=== PATIENT | female | born 1995 | race Caucasian/White ===

== ENCOUNTER 2022-12-01 20:57 | Observation (INO) | payer OTHER, SELFPAY ==
[2022-12-01 20:59] VITALS: BP 135/102; PULSE 67; RESP 17
[2022-12-01 21:00] VITALS: BP 135/102; PULSE 99; RESP 18; TEMP 37.3; O2SAT 100; BMI 25.1
--- NOTE | 2022-12-01 21:12 | CT_ITS ---
The [address] [address] Patient Name: LILIANE AMANDA MRN: [facility]:[id number] date: 1995 Sex: F Assigned Patient Location: ER Current Patient Location: ICU Accession/Order Number: [id number] Exam Date: 12/01/2022 21:24 Report Date: 12/01/2022 22:29 At the request of: BOO PALOMARES Procedure: CT head/brain wo con EXAM: CT head/brain wo con, CT cervical spine wo con, CT facial bones wo con HISTORY: seizure COMPARISON: None. TECHNIQUE: Axial CT scans through the head, facial bones and cervical spine were obtained without IV contrast administration. Dose reduction techniques were achieved by using: automated exposure control and/or adjustment of mA and /or kV according to patient size and/or use of iterative reconstruction technique. CT BRAIN FINDINGS: There is no evidence of acute intracranial hemorrhage or abnormal extra-axial fluid collection. No mass effect or midline shift is seen. There is no evidence of large acute territorial infarction. There is no hydrocephalus. No definite acute fracture is identified. Soft tissues are unremarkable. IMPRESSION: No CT evidence of acute intracranial abnormality. CT FACIAL BONES FINDINGS: No acute fracture or posttraumatic malalignment. The globes are intact bilaterally. There is no retrobulbar hematoma. The soft tissues are unremarkable. The visualized paranasal sinuses show no air-fluid level. Mastoid air cells are clear. IMPRESSION: No acute abnormality of facial bones. CT CERVICAL SPINE FINDINGS: No acute fracture or posttraumatic malalignment is seen. There is straightening of the normal cervical lordotic curvature. The prevertebral soft tissue space appears normal. Visualized neck shows no adenopathy. IMPRESSION: No acute fracture or posttraumatic malalignment of cervical spine. Straightening of cervical lordosis, may be related to positioning or muscle spasm. EXAM: XR ankle RT 2V TECHNIQUE: Right ankle x-ray: 2 view(s). FINDINGS: No acute displaced fracture or dislocation. Alignment is anatomic. No soft tissue abnormality is seen. IMPRESSION: No acute displaced fracture or dislocation. Electronically authenticated by: SRIDHAR UNLU Date: 12/01/2022 22:29
--- NOTE | 2022-12-01 21:12 | CT_ITS ---
The [address] [address] Patient Name: LILIANE AMANDA MRN: [facility]:[id number] date: 1995 Sex: F Assigned Patient Location: ER Current Patient Location: ICU Accession/Order Number: [id number] Exam Date: 12/01/2022 21:24 Report Date: 12/01/2022 22:29 At the request of: BOO PALOMARES Procedure: CT facial bones wo con EXAM: CT head/brain wo con, CT cervical spine wo con, CT facial bones wo con HISTORY: seizure COMPARISON: None. TECHNIQUE: Axial CT scans through the head, facial bones and cervical spine were obtained without IV contrast administration. Dose reduction techniques were achieved by using: automated exposure control and/or adjustment of mA and /or kV according to patient size and/or use of iterative reconstruction technique. CT BRAIN FINDINGS: There is no evidence of acute intracranial hemorrhage or abnormal extra-axial fluid collection. No mass effect or midline shift is seen. There is no evidence of large acute territorial infarction. There is no hydrocephalus. No definite acute fracture is identified. Soft tissues are unremarkable. IMPRESSION: No CT evidence of acute intracranial abnormality. CT FACIAL BONES FINDINGS: No acute fracture or posttraumatic malalignment. The globes are intact bilaterally. There is no retrobulbar hematoma. The soft tissues are unremarkable. The visualized paranasal sinuses show no air-fluid level. Mastoid air cells are clear. IMPRESSION: No acute abnormality of facial bones. CT CERVICAL SPINE FINDINGS: No acute fracture or posttraumatic malalignment is seen. There is straightening of the normal cervical lordotic curvature. The prevertebral soft tissue space appears normal. Visualized neck shows no adenopathy. IMPRESSION: No acute fracture or posttraumatic malalignment of cervical spine. Straightening of cervical lordosis, may be related to positioning or muscle spasm. EXAM: XR ankle RT 2V TECHNIQUE: Right ankle x-ray: 2 view(s). FINDINGS: No acute displaced fracture or dislocation. Alignment is anatomic. No soft tissue abnormality is seen. IMPRESSION: No acute displaced fracture or dislocation. Electronically authenticated by: SRIDHAR UNLU Date: 12/01/2022 22:29
--- NOTE | 2022-12-01 21:12 | CT_ITS ---
The [address] [address] Patient Name: LILIANE AMANDA MRN: [facility]:[id number] date: 1995 Sex: F Assigned Patient Location: ER Current Patient Location: ICU Accession/Order Number: [id number] Exam Date: 12/01/2022 21:24 Report Date: 12/01/2022 22:29 At the request of: BOO PALOMARES Procedure: CT cervical spine wo con EXAM: CT head/brain wo con, CT cervical spine wo con, CT facial bones wo con HISTORY: seizure COMPARISON: None. TECHNIQUE: Axial CT scans through the head, facial bones and cervical spine were obtained without IV contrast administration. Dose reduction techniques were achieved by using: automated exposure control and/or adjustment of mA and /or kV according to patient size and/or use of iterative reconstruction technique. CT BRAIN FINDINGS: There is no evidence of acute intracranial hemorrhage or abnormal extra-axial fluid collection. No mass effect or midline shift is seen. There is no evidence of large acute territorial infarction. There is no hydrocephalus. No definite acute fracture is identified. Soft tissues are unremarkable. IMPRESSION: No CT evidence of acute intracranial abnormality. CT FACIAL BONES FINDINGS: No acute fracture or posttraumatic malalignment. The globes are intact bilaterally. There is no retrobulbar hematoma. The soft tissues are unremarkable. The visualized paranasal sinuses show no air-fluid level. Mastoid air cells are clear. IMPRESSION: No acute abnormality of facial bones. CT CERVICAL SPINE FINDINGS: No acute fracture or posttraumatic malalignment is seen. There is straightening of the normal cervical lordotic curvature. The prevertebral soft tissue space appears normal. Visualized neck shows no adenopathy. IMPRESSION: No acute fracture or posttraumatic malalignment of cervical spine. Straightening of cervical lordosis, may be related to positioning or muscle spasm. EXAM: XR ankle RT 2V TECHNIQUE: Right ankle x-ray: 2 view(s). FINDINGS: No acute displaced fracture or dislocation. Alignment is anatomic. No soft tissue abnormality is seen. IMPRESSION: No acute displaced fracture or dislocation. Electronically authenticated by: SRIDHAR UNLU Date: 12/01/2022 22:29
--- NOTE | 2022-12-01 21:15 | ECG_ITS ---
The [facility] Test Date: 2022-12-01 Pat Name: LILIANE AMANDA Department: Room: - Gender: Female Order Taker: : 1995 Requested By: [id number] Order Number: [id number] Reading MD: CAT HADDAD Measurements Intervals [place] Rate: 88 P: 61 NC: 166 QRS: 85 QRSD: 102 T: 59 QT: 388 QTc: 434 Interpretive Statements 1100 Sinus rhythm 9110 normal ECG No previous ECG available for comparison Electronically Signed On 12-02-2022 6:54:12 EDT by CAT HADDAD
--- NOTE | 2022-12-01 21:17 | ED.SEIZURE1 ---
HPI - Seizure General Chief Complaint: Dental/Oral Stated Complaint: fall Time Seen by Provider: 12/01/22 21:06 Source: patient Source comment: ems Mode of arrival: ambulance Limitations: altered mental status (patient is post ictal on arrival) History of Present Illness HPI Narrative: This 27-year-old female was transferred from [facility] where she has been a resident since November 23. She is receiving rehab for opiate dependence. The patient states that she started on Wellbutrin earlier today. This evening she was playing a game with some other residents when she states her head started shaking and then she cannot recall what happened. According to EMS she had a witnessed seizure and fell and struck the right side of her face. She has an approximately 4 cm laceration at the right lateral aspect of her periorbital region and a hematoma over her right eye and right cheek. She fell and broke the 2 front incisors. She is noted to have hives on her chest upon arrival and states she is having a burning sensation in her right ankle area where she has an eruption of what appears to be hives. He denies any difficulty breathing or swallowing. She did bite her tongue. She does not have a history of seizures. She denies that she was addicted to benzodiazepines stating that Percocet was what she was addicted to. MD complaint: Reports seizure Onset (ago): hour(s) (1) Description of Episode: Reports loss of consciousness and post-event confusion Witnessed: Yes - by Bystander Trauma: No Seizure History: No Place: [facility] Possible Precipitating Event: Reports head injury and stress Treatments prior to arrival: Reports none Related Data Home Medications Medication Instructions Recorded Confirmed buprenorphine 12 mg-naloxone 3 mg 1 film sublingual DAILY 12/01/22 12/01/22 sublingual film bupropion HCl 100 mg tablet 100 mg PO DAILY 12/01/22 12/01/22 clonidine HCl 0.1 mg tablet 0.1 mg PO DAILY 12/01/22 12/01/22 gabapentin 600 mg tablet 600 mg PO DAILY 12/01/22 12/01/22 hydroxyzine pamoate 25 mg capsule 25 mg PO BID 12/01/22 12/01/22 (Vistaril) hydroxyzine pamoate 25 mg capsule 25 mg PO BID 12/01/22 12/01/22 (Vistaril) methocarbamol 750 mg tablet 750 mg PO Q8H 12/01/22 12/01/22 Allergies Allergy/AdvReac Type Severity Reaction Status Date / Time amoxicillin AdvReac Mild Hives Verified 12/01/22 21:07 Review of Systems ROS Status of ROS 10 or more systems reviewed and unremarkable except as noted in history and below Exam Narrative Exam Narrative: Patient is mildly postictal but appropriate Constitutional Vital Signs - 24 hr 12/01/22 21:00 12/01/22 21:26 12/01/22 22:36 Temperature 99.2 F Pulse Rate [Monitor] 99 H Respiratory Rate 18 22 Blood Pressure [Right Arm] 135/102 H Pulse Oximetry 100 99 96 Oxygen Delivery Method Room Air Room Air Room Air Documenting provider has reviewed patient's vital signs: yes (Patient is afebrile with a normal pulse, blood pressure is moaning elevated at 135/102, she is not hypoxic a pulse ox of 100 percent on room air) Common normals: no apparent distress Exam limitations: altered mental status (Patient is mildly postictal) General appearance: well kempt and well developed HENMT Common normals: normocephalic (There is a hematoma at the lateral aspect of the right forehead, ) and oropharynx normal (2 frontal incisors are broken, there are 2 tongue lacerations ) Head and scalp: normal to inspection, normocephalic, atraumatic (4 cm hematoma to the right forehead, 2 x 2 area of swelling, tenderness ), contusion (right cheek), hematoma right temporal and laceration (4 cm, superficial, lateral to right eye) Face and sinus images: 1. 2. 3. Nose: external nose normal, nares normal and no nasal discharge General ear: hearing grossly impaired External ear: external ears normal External auditory canal: EACs normal Mouth: tongue normal (2 tongue lacerations, anterior and right lateral) and mouth trauma (2 frontal incisors are broken) Throat: posterior oropharynx normal Eye Common normals: PERRL, EOMs intact bilaterally and conjunctivae normal General eye: normal appearance of both eyes Neck & C-Spine Cervical spine: collar present Lymph Lymphatic: no lymphadenopathy noted Chest Chest: abnormal inspection of the chest (faint red rash on anterior chest wall) Respiratory Common normals: normal respiratory effort, no retractions, no use of accessory muscles and clear to auscultation bilaterally Effort & inspection: able to speak in complete sentences and symmetric chest movement Cardio Common normals: no JVD, regular rate, regular rhythm, S1 normal heart sound, S2 normal heart sound, no murmurs, no rub and peripheral pulses 2+ throughout GI Common normals: Normal to inspection, nondistended, normoactive bowel sounds present, soft to palpation, non-tender, no hepatosplenomegaly and no masses Back & Pelvis Common normals: no CVA tenderness and thoracic and lumbar spine normal to inspection Extremity Right lower extremity: lower leg (faint, irregular rash and tenderness to right medial lower leg, non-petechi) Neuro [place] Coma Scale: document GCS findings [place] coma scale eye opening: Spontaneous [place] coma scale verbal response: Orientated [place] coma scale motor response: Obey commands [place] coma scale total score: 15 Common normals: oriented x3, CN's II-XII intact bilaterally, moves all extremities, no focal motor deficits and no sensory deficits noted Sensorium/orientation: awake, alert, oriented to person and oriented to place Psych Common normals: mental status grossly normal Course Course Hospital Course: Patient remained awake, alert, oriented with no recurrent seizure activity. She was tremulous and stated that she had the chills and was medicated with Tylenol and Ativan. CT scans of the brain, cervical spine and facial bones were reviewed by radiology and reviewed by myself and are negative for acute findings. For whatever reason the CT and x-ray findings are not crossing over into the body of this chart. The patient was given copies of the reports. I will discuss hospitalization for observation and neuro checks overnight. The patient's hives on her face and right ankle have resolved as well. She has never been on any SSRI or other medications or antidepressants in the past. She does take Seroquel for sleep. Vital Signs Vital signs: Vital Signs Temperature 99.2 F 12/01/22 21:00 Pulse Rate 99 H 12/01/22 21:00 Respiratory Rate 18 12/01/22 21:00 Blood Pressure 135/102 H 12/01/22 21:00 Pulse Oximetry 100 12/01/22 21:00 Oxygen Delivery Method Room Air 12/01/22 21:00 Temperature 99.2 F 12/01/22 21:00 Pulse Rate 99 H 12/01/22 21:00 Respiratory Rate 22 12/01/22 22:36 Blood Pressure 135/102 H 12/01/22 21:00 Pulse Oximetry 96 12/01/22 22:36 Oxygen Delivery Method Room Air 12/01/22 22:36 MDM - Seizure MDM Narrative Medical decision making narrative: This 27-year-old female who is currently in an outpatient rehab facility for opiate dependence presents for evaluation after she had a witnessed seizure. The patient was started on Wellbutrin earlier today. She does not have a history of a seizure disorder. The patient fell sustaining a laceration to the right side of her face which I closed with 4 sutures, she also has a hematoma over her right zygoma area and right frontal aspect of her forehead. She denied any neck pain and had no focal neurologic deficits however she was postictal upon arrival. An EKG done upon arrival was in his rhythm at 88 bpm with no acute changes. An IV had been placed by EMS and she was given a milligram of Ativan. She was noted to have hives on her chest and right lower leg for which I gave her 25 mg of IV Benadryl. She has had some tremulous episodes and I was concerned she may have another seizure so she was medicated with an additional milligram of Ativan. Routine labs are reviewed. She has a normal white count. Normal hemoglobin. Electrolytes are normal. Her tox was negative for alcohol but positive for Suboxone and benzodiazepines. She has been in the rehab since November 23. She had an elevated lactic acid likely related to her seizure activity. She was given IV fluids and Tylenol clinical improvement. CT scan of the head/brain, cervical spine and facial bones are reviewed and are normal. The results did not propagate into the body of this report but the director of radiology gave me copies of the readings. The c-collar was removed. She does have 2L Ellis1 fractures of the upper incisors and 2 tongue lacerations but no active oral bleeding or signs of infection. Case was discussed with the hospitalist and she is accepted for admission, observation status Differential Diagnosis Differential diagnosis: Likely generalized seizure Lab Data Labs: Lab Results 12/01/22 12/01/22 Range/Units 21:18 22:49 WBC 7.5 (4.0-11.0) 10^3/uL RBC 4.24 (4.20-5.40) 10^6/uL Hgb 12.9 (12.0-16.0) g/dL Hct 36.9 (36.0-48.0) % MCV 87.0 (81.0-99.0) fL MCH 30.4 (26.7-34.0) pg MCHC 35.0 (29.9-35.2) g/dL RDW 11.2 (11.0-15.0) % Plt Count 221 (150-450) 10^3/uL MPV 11.2 (9.5-13.5) fL Neut % (Auto) 69.7 (43.0-75.0) % Lymph % (Auto) 23.7 (20.5-60.0) % [place] % (Auto) 5.5 (1.7-12.0) % Eos % (Auto) 0.3 L (0.9-7.0) % Baso % (Auto) 0.5 (0.2-2.0) % Neut # (Auto) 5.3 (1.4-6.5) 10^3/uL Lymph # (Auto) 1.8 (1.2-3.8) 10^3/uL [place] # (Auto) 0.4 (0.3-0.8) 10^3/uL Eos # (Auto) 0.0 (0.0-0.7) 10^3/uL Baso # (Auto) 0.0 (0.0-0.1) 10^3/uL Abs Immat Gran (auto) 0.02 (0.00-0.03) 10^3/uL Imm/Tot Granulo (auto) 0.3 (0.0-0.5) % ESR 6 (<=20) mm/hr Sodium 139 (136-145) mmol/L Potassium 4.5 (3.5-5.1) mmol/L Chloride 103 (98-107) mmol/L Carbon Dioxide 25.2 (21.0-32.0) mmol/L Anion Gap 15.3 BUN 13.0 (7.0-18.0) mg/dL Creatinine 1.00 (0.55-1.02) mg/dL Est GFR ( Amer) >60 (>=60) Est GFR (Non-Af Amer) >60 (>=60) BUN/Creatinine Ratio 13.0 Glucose 89 (74-106) mg/dL Lactate 3.6 H* (0.4-2.0) mmol/L Calcium 9.2 (8.5-10.1) mg/dL Urine Opiates Screen Negative (NEGATIVE) Ur Buprenorphine Scrn Positive A (NEGATIVE) Ur Oxycodone Screen Negative (NEGATIVE) Urine Methadone Screen Negative (NEGATIVE) Ur Propoxyphene Screen Negative (NEGATIVE) Ur Barbiturates Screen Negative (NEGATIVE) U Tricyclic Antidepress Negative (NEGATIVE) Ur Phencyclidine Scrn Negative (NEGATIVE) Ur Amphetamines Screen Negative (NEGATIVE) U Methamphetamines Scrn Negative (NEGATIVE) U Benzodiazepines Scrn Positive A (NEGATIVE) Urine Cocaine Screen Negative (NEGATIVE) U Cannabinoids Screen Negative (NEGATIVE) Ethanol Quant <3 mg/dL ECG Data Attestation: I personally reviewed and interpreted this ECG as follows: (Sinus rhythm at 88 beats for minute, normal axis, normal intervals, no acute ST segment elevation or T-wave inversion) Critical Care Time Critical Care Time Critical Care Time: Yes Total Critical Care Time: 40 (minutes) Attestation: i have seen and treated this patient Discharge Plan Discharge Chief Complaint: Dental/Oral Clinical Impression: Laceration, New onset seizure, Allergic reaction, Fracture of tooth Patient Disposition: Admitted as Observation Time of Disposition Decision: 00:00 Condition: Good Procedures ED Laceration Laceration Laceration 1: Site: face (Right lateral temporal aspect of scalp) Size (cm): 4 Description: linear and clean Depth: simple, single layer Anesthetic used: lidocaine 1% Anesthesia technique: local infiltration Amount (ml): 5 Skin layer closed with: other (Ethilon) Size (cm): 4-0 Number of sutures: 4 Technique: simple, interrupted
[2022-12-01] MEDS: LORAZEPAM 2 MG/ML 1 ML VIAL 1 MG IV (21:25)
[2022-12-01 21:26] VITALS: PULSE 94; O2SAT 99
[2022-12-01 21:30] LABS: Basophils Percent Auto 0.5 % (0.2-2.0); Eosinophils Percent Auto 0.3 % (0.9-7.0); Hematocrit 36.9 % (36.0-48.0); Hemoglobin 12.9 g/dL (12.0-16.0); Immature Granulocytes Abs Auto 0.02 10^3/uL (0.00-0.03); Immature Granulocytes Pct Auto 0.3 % (0.0-0.5); Lymphocytes Absolute Auto 1.8 10^3/uL (1.2-3.8); Lymphocytes Percent Auto 23.7 % (20.5-60.0); Mean Corpuscular Hemoglobin 30.4 pg (26.7-34.0); Mean Platelet Volume 11.2 fL (9.5-13.5); Monocytes Absolute Auto 0.4 10^3/uL (0.3-0.8); Monocytes Percent Auto 5.5 % (1.7-12.0); Neutrophils Absolute Auto 5.3 10^3/uL (1.4-6.5); Neutrophils Percent Auto 69.7 % (43.0-75.0); Platelet Count 221 10^3/uL (150-450); Red Blood Count 4.24 10^6/uL (4.20-5.40); Red Cell Distribution Width 11.2 % (11.0-15.0); White Blood Count 7.5 10^3/uL (4.0-11.0)
--- NOTE | 2022-12-01 21:30 | PC.NURSE ---
Pt presented to ER via EMS from [facility] Per EMS pt had a witnessed seizure from standing Pt presents with a laceration from the right congregational into the hair line, a large hematome to the right side of the forehead and right zygomatic bone area. Bilateral front teeth have been broken secondary to the fall Pt presents from EMS with a bandage to the wound, an IV established, and a C-collar in place Noted on arrival is a rash/hives to the patients chest The pt is complaining of pain to her right ankle, assesment reveals a large reddened area that blotches out, appearing to be a hive Pt is very sensitive to the touch of this area
--- NOTE | 2022-12-01 21:34 | XR_ITS ---
The [address] [address] Patient Name: LILIANE AMANDA MRN: [facility]:[id number] date: 1995 Sex: F Assigned Patient Location: ER Current Patient Location: ICU Accession/Order Number: [id number] Exam Date: 12/01/2022 21:24 Report Date: 12/01/2022 22:29 At the request of: BOO PALOMARES Procedure: XR ankle RT 2V EXAM: CT head/brain wo con, CT cervical spine wo con, CT facial bones wo con HISTORY: seizure COMPARISON: None. TECHNIQUE: Axial CT scans through the head, facial bones and cervical spine were obtained without IV contrast administration. Dose reduction techniques were achieved by using: automated exposure control and/or adjustment of mA and /or kV according to patient size and/or use of iterative reconstruction technique. CT BRAIN FINDINGS: There is no evidence of acute intracranial hemorrhage or abnormal extra-axial fluid collection. No mass effect or midline shift is seen. There is no evidence of large acute territorial infarction. There is no hydrocephalus. No definite acute fracture is identified. Soft tissues are unremarkable. IMPRESSION: No CT evidence of acute intracranial abnormality. CT FACIAL BONES FINDINGS: No acute fracture or posttraumatic malalignment. The globes are intact bilaterally. There is no retrobulbar hematoma. The soft tissues are unremarkable. The visualized paranasal sinuses show no air-fluid level. Mastoid air cells are clear. IMPRESSION: No acute abnormality of facial bones. CT CERVICAL SPINE FINDINGS: No acute fracture or posttraumatic malalignment is seen. There is straightening of the normal cervical lordotic curvature. The prevertebral soft tissue space appears normal. Visualized neck shows no adenopathy. IMPRESSION: No acute fracture or posttraumatic malalignment of cervical spine. Straightening of cervical lordosis, may be related to positioning or muscle spasm. EXAM: XR ankle RT 2V TECHNIQUE: Right ankle x-ray: 2 view(s). FINDINGS: No acute displaced fracture or dislocation. Alignment is anatomic. No soft tissue abnormality is seen. IMPRESSION: No acute displaced fracture or dislocation. Electronically authenticated by: SRIDHAR UNLU Date: 12/01/2022 22:29
[2022-12-01 21:36] LABS: Erythrocyte Sedimentation Rate 6 mm/hr (<=20)
[2022-12-01 21:41] LABS: Anion Gap 15.3; Calcium 9.2 mg/dL (8.5-10.1); Carbon Dioxide 25.2 mmol/L (21.0-32.0); Chloride 103 mmol/L (98-107); Estimated GFR (African America >60 (>=60); Estimated GFR (Non-African Ame >60 (>=60); Ethanol <3 mg/dL; Glucose 89 mg/dL (74-106); Potassium 4.5 mmol/L (3.5-5.1); Sodium 139 mmol/L (136-145)
[2022-12-01 21:51] LABS: Lactate/Lactic Acid 3.6 mmol/L (0.4-2.0)
[2022-12-01] MEDS: 0.9 % SODIUM CHLORIDE 1,000 ML 1000 ML IV (22:02)
[2022-12-01] MEDS: DIPHENHYDRAMINE HCL 50 MG/ML (1ML) VIAL 25 MG IV (22:06)
[2022-12-01 22:36] VITALS: RESP 22; O2SAT 96
[2022-12-01] MEDS: LIDOCAINE HCL/PF 5 ML, SODIUM BICARBONATE 0.5 MEQ INJ (22:51)
[2022-12-01 22:53] VITALS: BP 131/79; PULSE 63; PULSE 69; PULSE 78; RESP 13; RESP 14; RESP 17
[2022-12-01 23:20] LABS: Amphetamine Screen Urine NEGATIVE (NEGATIVE); Barbiturates Screen Urine NEGATIVE (NEGATIVE); Benzodiazepines Screen Urine POSITIVE (NEGATIVE); Buprenorphine Screen Urine POSITIVE (NEGATIVE); Cannabinoid Screen Urine NEGATIVE (NEGATIVE); Cocaine Screen Urine NEGATIVE (NEGATIVE); Methadone Screen Urine NEGATIVE (NEGATIVE); Methamphetamines Screen Urine NEGATIVE (NEGATIVE); Opiate Screen Urine NEGATIVE (NEGATIVE); Oxycodone Screen Urine NEGATIVE (NEGATIVE); Phencyclidine Screen Urine NEGATIVE (NEGATIVE); Tricyclic Antidepressant Urine NEGATIVE (NEGATIVE)
[2022-12-02] VITALS (10 sets, daily range): BP systolic 105–129; BP diastolic 57–87; PULSE 62–90; RESP 12–20; TEMP 36.8–37.1; O2SAT 96–100; BMI 26.4
[2022-12-02] MEDS: KETOROLAC TROMETHAMINE 30 MG/ML VIAL IVP (00:35)
[2022-12-02] MEDS: LORAZEPAM 2 MG/ML 1 ML VIAL 1 MG IV (00:35)
--- NOTE | 2022-12-02 00:36 | PC.NURSE ---
After numerous conversations with pharmacy we were never able to finalize the Tylenol order. Pt was given 650mg PO Tylenol at 2245 on 12-01-22
[2022-12-02] MEDS: ACETAMINOPHEN 325 MG TABLET 650 MG PO ×2 (00:38→05:54)
--- NOTE | 2022-12-02 02:58 | W.PM.TELEPN ---
Progress Note: Subjective Subjective Interval history: Pt is a 27F with h/o opiate dependency currently at [facility] rehab presenting with a witnessed acute seizure. pt has presided at the rehab since november 23. she was just started on wellbutrin for the first time yesterday. pt was playing cards with other residents when she developed a shaking spell then fell backwards hitting right side of her face, causing laceration lateral to right eye and cracked 2 front teeth.She did have assoc tongue biting, no assoc incontinence. Deneis any prior seizure, no recent fever nor infection. denies any ecent etoh or drug use. Pt also developed hives on her chest and lower left leg as well. In ED, VSS. Labs signif for LA 3.6. UTox +benzo and buprenorphien. EKG NSR. CT brain,neck, face are neg for acute. RLE Xray neg for acute. Pt was tx with ativan 1 mg twice in ed. sutures were placed to laceration R face. Exam Constitutional Vital Signs - 24 hr 12/01/22 21:00 12/01/22 21:26 12/01/22 22:36 Temperature 99.2 F Pulse Rate Pulse Rate [Monitor] 99 H Respiratory Rate 18 22 Blood Pressure Blood Pressure [Right Arm] 135/102 H Pulse Oximetry 100 99 96 Oxygen Delivery Method Room Air Room Air Room Air 12/02/22 00:06 12/01/22 20:59 12/01/22 22:53 Temperature 98.5 F Pulse Rate 67 78 Pulse Rate [Monitor] Respiratory Rate 17 17 Blood Pressure 135/102 H 131/79 H Blood Pressure [Right Arm] Pulse Oximetry Oxygen Delivery Method 12/01/22 22:53 12/02/22 01:22 12/02/22 01:22 Temperature 98.8 F Pulse Rate 63 62 Pulse Rate [Monitor] 77 Respiratory Rate 13 18 20 Blood Pressure 131/79 H Blood Pressure [Right Arm] 129/87 H Pulse Oximetry 100 100 Oxygen Delivery Method Room Air Room Air Common normals: no apparent distress, oriented x3 and healthy appearing HENMT Head and scalp: normocephalic and atraumatic Face and sinus: facial laceration (right face lateral to right eye with sutures in place) Mouth: other (break in 2 front teeth) Eye General eye: normal appearance of both eyes Other: mild swelling beneath eye. no inv of eye Neck & C-Spine General: normal visual inspection and trachea midline Cardio Rate: regular rate Rhythm: regular rhythm GI Auscultation: normoactive bowel sounds Palpation: soft Extremity General: normal exam except as noted Neuro Sensorium/orientation: awake, alert, oriented to person, oriented to place and oriented to time Psych Insight: insight good Judgement: judgment good Progress Note: Objective Labs Labs: Short CBC 12/01/22 Range/Units 21:18 WBC 7.5 (4.0-11.0) 10^3/uL Hgb 12.9 (12.0-16.0) g/dL Hct 36.9 (36.0-48.0) % Plt Count 221 (150-450) 10^3/uL BMP 12/01/22 21:18 Sodium 139 Potassium 4.5 Chloride 103 Carbon Dioxide 25.2 BUN 13.0 Creatinine 1.00 Glucose 89 Calcium 9.2 ECG Interpretation: ekg nsr Progress Note: A&P Assessment and Plan (1) New onset seizure: (2) Fracture of tooth: (3) Laceration: (4) Drug abuse, opioid type: Plan New onset seizure Lactic Acidosis, likely sec to seizure Facial Laceration, s/p sutures in ED Fracture of teeth ,sec to sz Hives chest and RLE, much improved Hx of Opiate Abuse Plan: Sezure prec prn Ativan for recurrent sz If recurrent seizure, poss EEG and Neuro eval o/w can f/u outpt avoidance of wellbutrin, now listed as allergy Utox positive with regards to ativan recvd for sz and treatment in rehab only etoh neg ivf repeat LA. susppect elev d/t sz but will chk uA,CXR to r/o infx laceration to face in ED. supportive care will need to f/u with dentist on dc prn atarax to retrun back to [facility] once med stable. SW c/s dvt p/x lovenox full code Telemedicine Attestation Telemedicine Attestation I conducted this encounter from [] via secure live, [id number] video conference with the patient, CHARGE TEST-CHARGES located at [facility] with [[email or web address]]. Prior to the interview, the risks and benefits of telemedicine were discussed with the patient and verbal consent was obtained.
[2022-12-02] MEDS: QUETIAPINE FUMARATE 100 MG TABLET 300 MG PO (05:20)
[2022-12-02] MEDS: 0.9 % SODIUM CHLORIDE 1,000 ML 100 ML IV (05:22)
--- NOTE | 2022-12-02 05:52 | XR_ITS ---
[address] [address] Patient Name: LILIANE AMANDA MRN: [facility]:[id number] date: 1995 Sex: F Assigned Patient Location: ICU Current Patient Location: ICU Accession/Order Number: [id number] Exam Date: 12/02/2022 06:25 Report Date: 12/02/2022 07:29 At the request of: TITI ANDREWS Procedure: XR chest 1V PROCEDURE: XR chest 1V DATE: 12/02/2022 5:25 AM CDT COMPARISONS: None. CLINICAL INDICATION: 27 years Female lactic acidosis FINDINGS: The cardiomediastinal silhouette and pulmonary vasculature are within normal limits. The lungs are clear. There is no evidence of pleural effusion or pneumothorax. IMPRESSION: Chest radiograph is within normal limits. Electronically authenticated by: CECE KAISER Date: 12/02/2022 07:29
[2022-12-02 07:16] LABS: Lactate/Lactic Acid 0.4 mmol/L (0.4-2.0)
[2022-12-02] MEDS: METHOCARBAMOL 500 MG TABLET 750 MG PO (10:58)
[2022-12-02] MEDS: GABAPENTIN 300 MG CAPSULE 600 MG PO (10:59)
[2022-12-02] MEDS: CLONIDINE HCL 0.1 MG TABLET PO (10:59)
--- NOTE | 2022-12-02 12:13 | CM.NOTE ---
Rounds made with Dr. Wiggins, pt will have EEG completed today. Dr. Wiggins discussed with pt about ADHD and importance of follow up with primary care doctor to treat underlying problem. Pt verbalizes understanding, pt in agreement to return to [facility] for treatment of addiction.
--- NOTE | 2022-12-02 12:35 | PM.HP ---
H&P: HPI History of Present Illness Chief complaint: fall, new onset seizure, allergic reaction, dental Narrative: HPI and Hospital Course: 27 y o was brought from local detox facility where she was detoxing from opiates and was recently started on Wellbutrin for ADD and Major depression. She used it only once and had witness generalized tonic clonic seizures resulting in a fall that broke her teeth and small laceration over left protestant. No prior hx of seizures. Reports hx of opioid use and does not use any other substance like meth, cocaine or bzn. Appears anxious and fidgeting. Avoiding eye contact but appropriate, co operative and answered questions appropriately. Has no active complaints to offer Admission Diagnosis Generalized tonic clonic seizure due to prescription medication Opioid abuse ADD with hyperactivity JAZMINE with depression Head laceration Lactic acidosis Discharge Diagnosis as above Discharge status stable. Review of Systems ROS Status of ROS 10 or more systems reviewed and unremarkable except as noted in history and below [facility] Medical History (Updated 12/02/22 @ 12:41 by Shaikh Rosalie MD) Surgical History (Updated 12/02/22 @ 01:16 by Eliel Samaniego) Family History (Updated 12/02/22 @ 01:06 by Eliel Samaniego) Grandmother Family history of cancer Aunt Family history of cancer Father Family history of myocardial infarction Mother Family history of myocardial infarction Social History (Updated 12/02/22 @ 01:13 by Eliel Samaniego) Within the past year, how often did you have a drink containing alcohol: monthly or less Do you use any of these nicotine containing products: vaping products Second hand tobacco smoke exposure: No Non-prescribed substance use: former substance user and opiods/painkillers Previous occupational history: automotive refinish technician Known occupational exposures/hazards: No Highest level of school completed/degree received: some college, no degree Are you now , , , , never or living with a partner: never In a typical week, how many times do you talk on the telephone with family, friends, or neighbors: 3 or more times per week How often do you get together with friends or relatives: 3 or more times per week Little interest or pleasure in doing things: nearly every day Feeling down, depressed, or hopeless: nearly every day Feel stressed/tense/nervous/anxious/difficulty sleeping: very much Life stressors: other Life stressor details: Drug detox program for past 5 days Gender Identity: female Meds Home Medications and Allergies Home Medications Medication Instructions Recorded Confirmed Type buprenorphine 12 mg-naloxone 3 mg 1 film sublingual DAILY 12/01/22 12/01/22 History sublingual film bupropion HCl 100 mg tablet 100 mg PO DAILY 12/01/22 12/02/22 History clonidine HCl 0.1 mg tablet 0.1 mg PO DAILY 12/01/22 12/01/22 History gabapentin 600 mg tablet 600 mg PO DAILY 12/01/22 12/01/22 History hydroxyzine pamoate 25 mg capsule 25 mg PO BID 12/01/22 12/02/22 History (Vistaril) hydroxyzine pamoate 25 mg capsule 25 mg PO BID 12/01/22 12/02/22 History (Vistaril) methocarbamol 750 mg tablet 750 mg PO Q8H 12/01/22 12/01/22 History quetiapine 300 mg tablet 300 mg PO ONCE 12/02/22 12/02/22 History Allergies Allergy/AdvReac Type Severity Reaction Status Date / Time bupropion [From Wellbutrin] Allergy Severe Seizure Verified 12/02/22 01:12 amoxicillin AdvReac Mild Hives Verified 12/02/22 01:12 Exam Constitutional Vital Signs - 24 hr 12/01/22 21:00 12/01/22 21:26 12/01/22 22:36 Temperature 99.2 F Pulse Rate Pulse Rate [Monitor] 99 H Respiratory Rate 18 22 Blood Pressure Blood Pressure [Right Arm] 135/102 H Pulse Oximetry 100 99 96 Oxygen Delivery Method Room Air Room Air Room Air 12/02/22 00:06 12/01/22 20:59 12/01/22 22:53 Temperature 98.5 F Pulse Rate 67 78 Pulse Rate [Monitor] Respiratory Rate 17 17 Blood Pressure 135/102 H 131/79 H Blood Pressure [Right Arm] Pulse Oximetry Oxygen Delivery Method 12/01/22 22:53 12/02/22 01:22 12/02/22 01:22 Temperature 98.8 F Pulse Rate 63 62 Pulse Rate [Monitor] 77 Respiratory Rate 13 18 20 Blood Pressure 131/79 H Blood Pressure [Right Arm] 129/87 H Pulse Oximetry 100 100 Oxygen Delivery Method Room Air Room Air 12/02/22 05:44 12/02/22 05:44 12/02/22 06:30 Temperature 98.7 F 98.3 F Pulse Rate 80 Pulse Rate [Monitor] 80 Respiratory Rate 16 Blood Pressure Blood Pressure [Right Arm] 105/57 L Pulse Oximetry 99 Oxygen Delivery Method Room Air 12/01/22 22:53 12/02/22 00:57 12/02/22 00:58 Temperature Pulse Rate 69 74 79 Pulse Rate [Monitor] Respiratory Rate 14 17 12 Blood Pressure 131/79 H Blood Pressure [Right Arm] Pulse Oximetry Oxygen Delivery Method 12/02/22 00:59 12/02/22 05:26 12/02/22 09:00 Temperature Pulse Rate 90 87 Pulse Rate [Monitor] 88 Respiratory Rate 12 16 Blood Pressure 129/87 H 105/57 L Blood Pressure [Right Arm] Pulse Oximetry Oxygen Delivery Method 12/02/22 10:00 Temperature 98.2 F Pulse Rate 74 Pulse Rate [Monitor] Respiratory Rate 16 Blood Pressure Blood Pressure [Right Arm] 126/74 H Pulse Oximetry 96 Oxygen Delivery Method Room Air Documenting provider has reviewed patient's vital signs: yes Common normals: no apparent distress General appearance: cooperative and comfortable HENMT Head and scalp: laceration (right protestant s/p sutures. ) Eye Common normals: conjunctivae normal and no scleral icterus Respiratory Common normals: normal respiratory effort, no use of accessory muscles and clear to auscultation bilaterally Cardio Common normals: no JVD, regular rate, regular rhythm, S1 normal heart sound and S2 normal heart sound GI Common normals: Normal to inspection, nondistended, normoactive bowel sounds present, soft to palpation, non-tender and no hepatosplenomegaly Extremity Common normals: normal to inspection and full ROM Psych Common normals: mental status grossly normal, denies homicidal ideation and denies suicidal ideation Attitude: calm and withdrawn Activity/motor behavior: fidgeting and avoids eye contact Speech: minimal Mood and affect: flat affect Thought process: normal thought process Thought content: normal thought content Attention/concentration: attention grossly intact Memory/cognition: memory grossly intact Insight: insight good Judgement: judgment good Results Labs Labs: Short CBC 12/01/22 Range/Units 21:18 WBC 7.5 (4.0-11.0) 10^3/uL Hgb 12.9 (12.0-16.0) g/dL Hct 36.9 (36.0-48.0) % Plt Count 221 (150-450) 10^3/uL BMP 12/01/22 21:18 Sodium 139 Potassium 4.5 Chloride 103 Carbon Dioxide 25.2 BUN 13.0 Creatinine 1.00 Glucose 89 Calcium 9.2 Assessment and Plan Assessment and Plan (1) New onset seizure: Assessment and Plan: CT Head is normal. First episode after Wellbutrin was started. Likely due to Wellbutrin. Seizure precautions x 6 months. EEG routine. Outpatient f/u with Neurology No need for AEDs for now. (2) Fracture of tooth: Assessment and Plan: from fall. Outpatient f/u with dental surgery. (3) Laceration: Assessment and Plan: Required sutures. F/u outpatient for suture removal (4) Drug abuse, opioid type: Assessment and Plan: Currently in detox. Will be discharge to inpatient detox (5) ADD (attention deficit disorder): Assessment and Plan: Not on meds currently. Defer to outpatient provider (6) JAZMINE (generalized anxiety disorder): Assessment and Plan: On clonidine, Seroquel and Vistaril. C/w same. Defer to outpatient mental health provider. (7) Lactic acid acidosis: Assessment and Plan: from seizure. (8) Depressed: Assessment and Plan: Would need her meds adjusted as outpatient.
== END 2022-12-02 13:36 | disposition home or self-care (01) ==
LOC: ER 12-02 00:02 → ICU 12-02 00:21
PROVIDERS: Internal Medicine; Admitting Provider Internal Medicine; Emergency Provider Emergency Medicine; Visit Provider Internal Medicine
DX: R56.9 Unspecified convulsions (principal); T43.295A Adverse effect of other antidepressants, initial encounter; F90.9 Attention-deficit hyperactivity disorder, unspecified type; F41.1 Generalized anxiety disorder; F32.9 Major depressive disorder, single episode, unspecified; E87.20 Acidosis, unspecified; S01.81XA Laceration without foreign body of other part of head, initial encounter; W19.XXXA Unspecified fall, initial encounter; F11.10 Opioid abuse, uncomplicated; F17.290 Nicotine dependence, other tobacco product, uncomplicated; Z79.899 Other long term (current) drug therapy; S02.5XXA Fracture of tooth (traumatic), initial encounter for closed fracture
CPT/HCPCS: 12011; 36415; 70450; 70486; 71045; 72125; 73600; 80048; 80307; 80320; 80329; 81001; 83605; 85025; 85652; 93005; 96374; 96375; 96376; 99285; G0378; Q3014